=== PATIENT | female | born 1990 | race Caucasian/White ===

== ENCOUNTER 2021-10-10 13:05 | Emergency (ER) | payer OTHER ==
[~2021-10-10] VITALS: Ht 167.6 cm; Wt 60.3 kg
[2021-10-10] MEDS ORDERED: BACTRIM DS TAB1 EAC1 PO (14:32)
[2021-10-10 14:40] VITALS: BP 123/87
== END 2021-10-10 14:41 | disposition home or self-care (01) ==
LOC: M.ERS 13:05
DX: L03.116 Cellulitis of left lower limb (principal); Z90.49 Acquired absence of other specified parts of digestive tract